=== PATIENT | female | born 1995 | race Two or more races ===

== ENCOUNTER 2021-12-27 10:22 | Outpatient (CLI) | payer OTHER | END 2021-12-27 10:32 | disposition home or self-care (01) | LOC: RAD 10:22 | DX: Z01.818 Encounter for other preprocedural examination (principal) ==

== ENCOUNTER 2022-05-31 06:15 | Day surgery (SDC) | payer OTHER ==
[~2022-05-31] VITALS: Ht 149.9 cm; Wt 54.4 kg
[~2022-05-31 06:15] MED LIST: NIFE60TA3 PO
[2022-05-31] MEDS ORDERED: AMOX-CLAV 875-1 EACH PO (17:03)
[2022-05-31] MEDS ORDERED: TRAM1TAB98 PO (17:03)
[2022-05-31] MEDS ORDERED: IBU600 MG PO (17:04)
== END 2022-05-31 19:25 | disposition home or self-care (01) ==
LOC: CIR.AMB 06:15
PROVIDERS: ATTEND Obstetrics & Gynecology
DX: N83.11 Corpus luteum cyst of right ovary (principal); R10.2 Pelvic and perineal pain; I10 Essential (primary) hypertension; Z20.822 Contact with and (suspected) exposure to COVID-19